=== PATIENT | male | born 1955 | race Caucasian/White ===

== ENCOUNTER 2020-07-25 13:54 | Inpatient (IN) ==
[2020-07-25] MEDS ORDERED: 0.9 % Sodium Chloride 2,000 ML ONE (14:09)
[2020-07-25] MEDS ORDERED: Piperacillin/Tazobactam 3.375 GM in Water for inj. (sterile) 20 ML IVP ONE (14:16)
[2020-07-25] MEDS ORDERED: 0.9 % Sodium Chloride 1,000 ML IVC ONE ×2 (14:16)
[2020-07-25 14:50] LABS: Hematocrit 23.4 % (37.5-50.1); Hemoglobin 7.3 g/dL (12.9-16.9); Mean Corpuscular HGB Conc 31.2 g/dL (31.6-35.5); Mean Corpuscular Hemoglobin 26.2 pg (28.0-33.3); Mean Corpuscular Volume 83.9 fL (83.0-100.0); Mean Platelet Volume 11.5 fL (9.4-12.4); Platelet Count 170 K/mcL (140-400); Red Blood Count 2.79 M/mcL (4.19-5.50); Red Cell Distribution Width 19.9 % (11.5-14.5); White Blood Count 10.6 K/mcL (4.3-11.1)
[2020-07-25 14:56] LABS: VBG HCO3 20 mEq/L (21-27); VBG PCO2 36 mmHg (41-51); VBG PH 7.34 pH Units (7.32-7.42); VBG PO2 83 mmHg (25-50)
[2020-07-25 15:03] LABS: INR 1.5; Prothrombin Time 16.8 Seconds (9.4-12.1)
[2020-07-25 15:08] LABS: Lymphocytes # 2.3 K/mcL (0.6-4.6); Monocytes # 0.2 K/mcL (0.0-1.3); Neutrophils # 8.1 K/mcL (1.6-8.9); Platelet Estimate Normal (Normal)
[2020-07-25 15:12] LABS: Acetaminophen < 10 mcg/mL (10-20); Alanine Aminotransferase 48 Units/L (7-52); Albumin 1.9 g/dL (3.5-5.7); Albumin/Globulin Ratio 0.6 (1.1-2.2); Alkaline Phosphatase 1223 Units/L (34-104); Aspartate Amino Transferase 206 Units/L (13-39); BUN/Creatinine Ratio 17 (6-26); Bilirubin,Direct 1.4 mg/dL (0.0-0.2); Bilirubin,Indirect 0.9 mg/dL (0.0-1.0); Bilirubin,Total 2.3 mg/dL (0.3-1.0); Blood Urea Nitrogen 26 mg/dL (8-23); Calcium 9.1 mg/dL (8.6-10.3); Carbon Dioxide 19 mEq/L (23-29); Chloride 103 mEq/L (98-107); Ethanol < 10 mg/dL (Less than 10); Glucose 93 mg/dL (70-105); Lipase 4 Units/L (11-82); Magnesium 1.9 mg/dL (1.6-2.6); Osmolality,Calculated 276 (280-300); Potassium 4.4 mEq/L (3.5-5.1); Salicylate < 2.5 mg/dL (15.0-30.0); Sodium 131 mEq/L (136-145); Total Protein 4.9 g/dL (6.4-8.9); eGFR For African Americans 54 (> 60); eGFR For Non-African Americans 45 (> 60)
[2020-07-25] MEDS ORDERED: Isovue-370 500 ML BOTTLE IVP ONE (15:33)
[2020-07-25] MEDS ORDERED: 0.9 % Sodium Chloride 500 ML ONE (15:47)
[2020-07-25] MEDS ORDERED: *HR* Norepinephrine 4 MG/4 ML VIAL IVC ONE (16:10)
[2020-07-25] MEDS ORDERED: 0.9 % Sodium Chloride 250 ML ONE (16:10)
[2020-07-25] MEDS: Norepinephrine 4 MG/254 ML IV.SOLN IVC SCH ×2 (16:17→22:25)
[2020-07-25 16:45] LABS: Amphetamine Screen,Urine Negative ng/mL (Cutoff=1000); Barbiturate Screen,Urine Negative ng/mL (Cutoff=200); Benzodiazepines Screen,Urine Negative ng/mL (Cutoff=200); Cannabinoid Screen,Urine Negative ng/mL (Cutoff = 50); Cocaine Screen,Urine Negative ng/mL (Cutoff= 300); Opiate Screen,Urine Positive ng/mL (Cutoff=300); Phencyclidine Screen,Urine Negative ng/mL (Cutoff=25)
[2020-07-25 16:45] LABS: Bacteria,Urine Few per hpf (None-Few); Bilirubin,Urine Negative (Negative); Blood,Urine Small (Negative); Clarity,Urine Turbid (Clear); Color,Urine Yellow (Yellow); Glucose,Urine (UA) Normal (Normal); Granular Casts,Urine Many per lpf (None Seen); Hyaline Casts,Urine Few per lpf (None Seen); Ketones,Urine Negative (Negative); Leukocyte Esterase,Urine Negative (Negative); Mucus,Urine Few per lpf (None-Few); Nitrite,Urine Negative (Negative); PH,Urine 5.5 pH Units (5.0-8.0); Protein,Urine 30 mg/dL (Neg-Trace); Renal Epithelial Cells,Urine Few per hpf (None-Few); Transitional Epi Cells,Urine Few per hpf (None-Few); Urobilinogen,Urine Normal (Normal); WBC,Urine 15-30 per hpf (0-3)
[2020-07-25 16:56] LABS: Adenovirus Not Detected (Not Detect); Bordetella Pertussis Not Detected (Not Detect); Chlamydophila pneumoniae Not Detected (Not Detect); Coronavirus 229E Not Detected (Not Detect); Coronavirus HKU1 Not Detected (Not Detect); Coronavirus NL63 Not Detected (Not Detect); Coronavirus OC43 Not Detected (Not Detect); Human Metapneumovirus Not Detected (Not Detect); Human Rhinovirus/Enterovirus Not Detected (Not Detect); Influenza A Subtype 2009 H1 Not Detected (Not Detect); Influenza B Not Detected (Not Detect); Mycoplasma pneumoniae Not Detected (Not Detect); Parainfluenza Virus 1 Not Detected (Not Detect); Parainfluenza Virus 2 Not Detected (Not Detect); Parainfluenza Virus 3 Not Detected (Not Detect); Parainfluenza Virus 4 Not Detected (Not Detect); Respiratory Syncytial Virus Not Detected (Not Detect); SARS-CoV-2 Not Detected (Not Detect)
[2020-07-25 17:23] LABS: Thyroid Stimulating Hormone 5.782 mcIU/mL (0.340-5.600)
[2020-07-25] MEDS ORDERED: Naloxone 0.4 MG/ML INJ IVP PRN (20:08)
[2020-07-25] MEDS ORDERED: *HR* Dextrose 50 % in Water (Vial) 50 ML VIAL IVP PRN (20:15)
[2020-07-25] MEDS ORDERED: D5% in Water 1,000 ML IVC PRN (20:15)
[2020-07-25] MEDS ORDERED: Dextrose Gel 15 GM/37.5 ML TUBE PO PRN ×2 (20:15)
[2020-07-25] MEDS ORDERED: Albuterol 2.5 MG/3 ML NEBULIZER IH PRN (20:15)
[2020-07-25] MEDS ORDERED: Vancomycin (wt based) 1,000 MG VIAL IVPB SCH (21:00)
[2020-07-25] MEDS: Ipratropium/Albuterol Neb 3 ML IH SCH (22:10)
[2020-07-25 22:33] LABS: Estimated Average Glucose 114 mg/dl; Hemoglobin A1C 5.6 %
[2020-07-26] MEDS: Piperacillin/Tazobactam 3.375 GM in 0.9 % Sodium Chloride Mini Bag 100 ML IVPB SCH ×4 (00:21→23:09)
[2020-07-26] MEDS: Insulin LISPRO 300 UNITS/3 ML VIAL SUBQ SCH ×5 (00:21→23:41)
[2020-07-26] MEDS: Norepinephrine 4 MG/254 ML IV.SOLN IVC SCH ×5 (03:36→22:56)
[2020-07-26 03:37] LABS: Basophils % 0.4 %; Eosinophils # 0.1 K/mcL (0.0-0.6); Eosinophils % 0.5 %; Hematocrit 28.7 % (37.5-50.1); Immature Granulocytes % 0.4 % (0-4); Lymphocytes # 1.2 K/mcL (0.6-4.6); Lymphocytes % 11.9 %; Mean Corpuscular Hemoglobin 26.2 pg (28.0-33.3); Mean Corpuscular Volume 84.4 fL (83.0-100.0); Mean Platelet Volume 11.4 fL (9.4-12.4); Monocytes # 0.7 K/mcL (0.0-1.3); Monocytes % 6.7 %; Platelet Count 194 K/mcL (140-400); Segmented Neutrophils % 80.1 %; White Blood Count 10.4 K/mcL (4.3-11.1)
[2020-07-26 03:38] LABS: Immature Reticulocyte % 21.9 % (11.0-38.0); Retculocyte # 0.06 M/mcL (0.05-0.10); Reticulocyte % 1.7 % (1.6-2.8)
[2020-07-26] MEDS: Ipratropium/Albuterol Neb 3 ML IH SCH ×4 (03:39→22:28)
[2020-07-26 03:40] LABS: Hemoglobin 8.9 g/dL (12.9-16.9); Neutrophils # 8.3 K/mcL (1.6-8.9)
[2020-07-26 03:44] LABS: INR 1.6; Prothrombin Time 17.7 Seconds (9.4-12.1)
[2020-07-26 03:52] LABS: Anisocytosis 1+ (Not Present); Platelet Estimate Normal (Normal)
[2020-07-26 03:57] LABS: Albumin 1.8 g/dL (3.5-5.7); Albumin/Globulin Ratio 0.6 (1.1-2.2); Bilirubin,Direct 1.5 mg/dL (0.0-0.2); Bilirubin,Indirect 0.9 mg/dL (0.0-1.0); Bilirubin,Total 2.4 mg/dL (0.3-1.0); Calcium 7.3 mg/dL (8.6-10.3); Magnesium 1.8 mg/dL (1.6-2.6); Phosphorous 4.4 mg/dL (2.7-4.5); Potassium 4.3 mEq/L (3.5-5.1); Total Protein 4.8 g/dL (6.4-8.9)
[2020-07-26 03:58] LABS: % Iron Saturation 24 % (20-55); Iron 41 mcg/dL (65-175); Transferrin 123 mg/dL (203-362)
[2020-07-26 04:16] LABS: Ferritin 164 ng/mL (20-250)
[2020-07-26] MEDS: DAPTOmycin 500 MG in 0.9 % Sodium Chloride 100 ML IVPB SCH (07:38)
[2020-07-26] MEDS: Pantoprazole 40 MG VIAL IVP SCH (08:54)
[2020-07-26] MEDS: Fluconazole 400 MG/200 ML 400 MG/200 ML BAG IVPB SCH (08:54)
[2020-07-26] MEDS: *HR* Heparin 5,000 UNIT/ML VIAL SQ SCH ×2 (09:48→18:20)
[2020-07-26] MEDS: Vancomycin Oral Soln 125 MG/2.5 ML UDC PO SCH ×4 (09:48→20:35)
[2020-07-26] MEDS ORDERED: Lactulose Oral Soln 20 GM/30 ML UDC PO ONE (14:52)
[2020-07-26] MEDS ORDERED: MetroNIDAZOLE 500 MG/100 ML 500 MG/100 ML BAG IVPB SCH (16:00)
[2020-07-26] MEDS ORDERED: Acetaminophen 325 MG TABLET PO PRN (16:23)
[2020-07-26 23:42] LABS: Adenovirus F 40/41 PCR Not detected (Not detect); Astrovirus PCR Not detected (Not detect); C.difficile Toxin A/B Gene PCR Not detected (Not detect); Campylobacter by PCR Not detected (Not detect); Cryptosporidium by PCR Not detected (Not detect); Cyclospora cayetanensis PCR Not detected (Not detect); E. coli O157 by PCR Not detected (Not detect); Entamoeba histolytica PCR Not detected (Not detect); Enteroaggregative E.coli(EAEC) Not detected (Not detect); Enteropathogenic E.coli(EPEC) Not detected (Not detect); Enterotoxigenic E.coli (ETEC) Not detected (Not detect); Giardia lamblia PCR Not detected (Not detect); Norovirus GI/GII PCR Not detected (Not detect); Plesiomonas shigelloides PCR Not detected (Not detect); Rotavirus A PCR Not detected (Not detect); Salmonella PCR Not detected (Not detect); Sapovirus PCR Not detected (Not detect); Shig/EnteroinvasiveE coli EIEC Not detected (Not detect); Shigalike tox-prod E coli STEC Not detected (Not detect); Vibrio PCR Not detected (Not detect); Vibrio cholerae PCR Not detected (Not detect); Yersinia enterocolitica PCR Not detected (Not detect)
[2020-07-27 03:55] LABS: Basophils # 0.1 K/mcL (0.0-0.2); Basophils % 0.6 %; Eosinophils # 0.1 K/mcL (0.0-0.6); Eosinophils % 1.4 %; Hematocrit 29.9 % (37.5-50.1); Hemoglobin 9.2 g/dL (12.9-16.9); Immature Granulocytes % 0.6 % (0-4); Lymphocytes # 1.1 K/mcL (0.6-4.6); Lymphocytes % 13.2 %; Mean Corpuscular HGB Conc 30.8 g/dL (31.6-35.5); Mean Corpuscular Hemoglobin 26.2 pg (28.0-33.3); Mean Corpuscular Volume 85.2 fL (83.0-100.0); Mean Platelet Volume 12.3 fL (9.4-12.4); Monocytes # 0.5 K/mcL (0.0-1.3); Monocytes % 5.9 %; Platelet Count 203 K/mcL (140-400); Red Blood Count 3.51 M/mcL (4.19-5.50); Red Cell Distribution Width 19.5 % (11.5-14.5); Segmented Neutrophils % 78.3 %; White Blood Count 8.1 K/mcL (4.3-11.1)
[2020-07-27 03:58] LABS: Neutrophils # 6.3 K/mcL (1.6-8.9)
[2020-07-27] MEDS: Norepinephrine 4 MG/254 ML IV.SOLN IVC SCH ×3 (04:02→17:55)
[2020-07-27 04:04] LABS: INR 1.5; Prothrombin Time 16.7 Seconds (9.4-12.1)
[2020-07-27 04:06] LABS: VBG Ionized Calcium 1.02 mmol/L (1.15-1.35)
[2020-07-27 04:13] LABS: Albumin 1.8 g/dL (3.5-5.7); Albumin/Globulin Ratio 0.6 (1.1-2.2); Bilirubin,Direct 1.1 mg/dL (0.0-0.2); Bilirubin,Indirect 0.8 mg/dL (0.0-1.0); Bilirubin,Total 1.9 mg/dL (0.3-1.0); Calcium 7.1 mg/dL (8.6-10.3); Magnesium 1.8 mg/dL (1.6-2.6); Potassium 4.1 mEq/L (3.5-5.1); Total Protein 4.8 g/dL (6.4-8.9)
[2020-07-27 04:15] LABS: Anisocytosis 1+ (Not Present); Platelet Estimate Normal (Normal); Reactive Lymphocytes Present (Not Present); Smudge Cells Present (Not Present); Toxic Granulation Present (Not Present)
[2020-07-27] MEDS: Ipratropium/Albuterol Neb 3 ML IH SCH ×4 (04:23→22:08)
[2020-07-27] MEDS: *HR* Heparin 5,000 UNIT/ML VIAL SQ SCH ×2 (05:06→17:16)
[2020-07-27] MEDS: Insulin LISPRO 300 UNITS/3 ML VIAL SUBQ SCH ×3 (06:28→18:10)
[2020-07-27] MEDS ORDERED: Albumin Human 5% 12.5 GM/250 ML IV.SOLN IVPB ONE (07:39)
[2020-07-27] MEDS ORDERED: Lactulose Oral Soln 20 GM/30 ML UDC PO SCH (09:00)
[2020-07-27] MEDS: Piperacillin/Tazobactam 3.375 GM in 0.9 % Sodium Chloride Mini Bag 100 ML IVPB SCH ×2 (09:09→15:51)
[2020-07-27] MEDS: Fluconazole 400 MG/200 ML 400 MG/200 ML BAG IVPB SCH (09:11)
[2020-07-27] MEDS: DAPTOmycin 500 MG in 0.9 % Sodium Chloride 100 ML IVPB SCH (09:13)
[2020-07-27] MEDS: Pantoprazole 40 MG VIAL IVP SCH (09:16)
[2020-07-27] MEDS ORDERED: Aquaphor/Maalox 50 GM BOTTLE TP PRN (10:16)
[2020-07-27] MEDS ORDERED: *HR* OxyCODONE Immed Rel 5 MG TABLET PO PRN (10:22)
[2020-07-27] MEDS ORDERED: *HR* Dextrose 50 % in Water (Vial) 50 ML VIAL IVP ONE (13:22)
[2020-07-27] MEDS: Gabapentin 300 MG CAPSULE PO SCH (20:32)
[2020-07-27] MEDS: Lactulose Oral Soln 20 GM/30 ML UDC PO SCH (20:32)
[2020-07-28] MEDS: Insulin LISPRO 300 UNITS/3 ML VIAL SUBQ SCH ×3 (00:23→11:43)
[2020-07-28] MEDS: Piperacillin/Tazobactam 3.375 GM in 0.9 % Sodium Chloride Mini Bag 100 ML IVPB SCH ×3 (00:25→16:37)
[2020-07-28] MEDS: Ipratropium/Albuterol Neb 3 ML IH SCH ×4 (04:29→23:00)
[2020-07-28 05:19] LABS: Hematocrit 27.4 % (37.5-50.1); Hemoglobin 8.4 g/dL (12.9-16.9); Mean Corpuscular HGB Conc 30.7 g/dL (31.6-35.5); Mean Corpuscular Hemoglobin 26.3 pg (28.0-33.3); Mean Corpuscular Volume 85.9 fL (83.0-100.0); Mean Platelet Volume 11.2 fL (9.4-12.4); Platelet Count 157 K/mcL (140-400); Red Blood Count 3.19 M/mcL (4.19-5.50); Red Cell Distribution Width 19.9 % (11.5-14.5); White Blood Count 6.9 K/mcL (4.3-11.1)
[2020-07-28 05:34] LABS: Albumin 1.7 g/dL (3.5-5.7); Albumin/Globulin Ratio 0.6 (1.1-2.2); Bilirubin,Direct 1.1 mg/dL (0.0-0.2); Bilirubin,Indirect 0.6 mg/dL (0.0-1.0); Bilirubin,Total 1.7 mg/dL (0.3-1.0); Calcium 6.9 mg/dL (8.6-10.3); Globulin 2.9 g/dL (2.4-3.5); Magnesium 1.8 mg/dL (1.6-2.6); Potassium 3.7 mEq/L (3.5-5.1); Total Protein 4.6 g/dL (6.4-8.9)
[2020-07-28 05:50] LABS: Anisocytosis 1+ (Not Present); Large Platelets Present (Not Present); Reactive Lymphocytes Present (Not Present)
[2020-07-28 05:51] LABS: Platelet Estimate Normal (Normal); Poikilocytosis 1+ (Not Present)
[2020-07-28] MEDS: *HR* Heparin 5,000 UNIT/ML VIAL SQ SCH ×2 (05:54→16:37)
[2020-07-28 06:22] LABS: Basophils # 0.1 K/mcL (0.0-0.2); Eosinophils # 0.1 K/mcL (0.0-0.6); Monocytes # 0.6 K/mcL (0.0-1.3); Neutrophils # 5.1 K/mcL (1.6-8.9)
[2020-07-28] MEDS: DAPTOmycin 500 MG in 0.9 % Sodium Chloride 100 ML IVPB SCH (07:55)
[2020-07-28] MEDS: Fluconazole 400 MG/200 ML 400 MG/200 ML BAG IVPB SCH (08:00)
[2020-07-28] MEDS: Pantoprazole 40 MG VIAL IVP SCH (08:01)
[2020-07-28] MEDS: Lactulose Oral Soln 20 GM/30 ML UDC PO SCH ×2 (08:04→19:41)
[2020-07-28] MEDS: Gabapentin 300 MG CAPSULE PO SCH ×2 (08:04→19:41)
[2020-07-28] MEDS ORDERED: Aspirin Enteric Coated 81 MG Tablet PO SCH (09:00)
[2020-07-28] MEDS ORDERED: *HR* Dextrose 50 % in Water (Vial) 50 ML VIAL IVP ONE (11:36)
[2020-07-28] MEDS ORDERED: Albumin Human 5% 12.5 GM/250 ML IV.SOLN IVC SCH (14:15)
[2020-07-28] MEDS ORDERED: Albuterol 2.5 MG/3 ML NEBULIZER IH PRN (14:48)
[2020-07-28] MEDS ORDERED: Acetaminophen 325 MG TABLET PO PRN (14:48)
[2020-07-28] MEDS ORDERED: Aquaphor/Maalox 50 GM BOTTLE TP PRN (14:48)
[2020-07-28] MEDS ORDERED: Dextrose Gel 15 GM/37.5 ML TUBE PO PRN ×2 (14:48)
[2020-07-28] MEDS ORDERED: Naloxone 0.4 MG/ML INJ IVP PRN (14:48)
[2020-07-28] MEDS ORDERED: *HR* Dextrose 50 % in Water (Vial) 50 ML VIAL IVP PRN (14:48)
[2020-07-28] MEDS ORDERED: D5% in Water 1,000 ML IVC PRN (14:48)
[2020-07-28] MEDS: *HR* OxyCODONE Immed Rel 5 MG TABLET PO PRN (16:37)
[2020-07-28] MEDS: Albumin Human 5% 12.5 GM/250 ML IV.SOLN IVC SCH ×2 (16:38→20:21)
[2020-07-29] MEDS: Piperacillin/Tazobactam 3.375 GM in 0.9 % Sodium Chloride Mini Bag 100 ML IVPB SCH ×4 (01:02→23:23)
[2020-07-29] MEDS: Ipratropium/Albuterol Neb 3 ML IH SCH ×4 (04:04→22:28)
[2020-07-29 04:46] LABS: VBG Ionized Calcium 1.02 mmol/L (1.15-1.35)
[2020-07-29 04:51] LABS: Basophils % 0.7 %; Eosinophils # 0.1 K/mcL (0.0-0.6); Eosinophils % 1.6 %; Hematocrit 26.7 % (37.5-50.1); Hemoglobin 8.3 g/dL (12.9-16.9); Immature Granulocytes % 0.5 % (0-4); Lymphocytes % 18.1 %; Mean Corpuscular HGB Conc 31.1 g/dL (31.6-35.5); Mean Corpuscular Hemoglobin 26.3 pg (28.0-33.3); Mean Corpuscular Volume 84.8 fL (83.0-100.0); Mean Platelet Volume 11.7 fL (9.4-12.4); Monocytes # 0.5 K/mcL (0.0-1.3); Monocytes % 8.5 %; Neutrophils # 3.9 K/mcL (1.6-8.9); Platelet Count 130 K/mcL (140-400); Red Blood Count 3.15 M/mcL (4.19-5.50); Red Cell Distribution Width 19.9 % (11.5-14.5); Segmented Neutrophils % 70.6 %; White Blood Count 5.5 K/mcL (4.3-11.1)
[2020-07-29 05:05] LABS: INR 1.5; Prothrombin Time 17.6 Seconds (9.4-12.1)
[2020-07-29 05:07] LABS: Albumin 1.9 g/dL (3.5-5.7); Albumin/Globulin Ratio 0.8 (1.1-2.2); Bilirubin,Direct 1.5 mg/dL (0.0-0.2); Bilirubin,Indirect 0.8 mg/dL (0.0-1.0); Bilirubin,Total 2.3 mg/dL (0.3-1.0); Globulin 2.5 g/dL (2.4-3.5); Magnesium 1.8 mg/dL (1.6-2.6); Phosphorous 3.6 mg/dL (2.7-4.5); Potassium 3.5 mEq/L (3.5-5.1); Total Protein 4.4 g/dL (6.4-8.9)
[2020-07-29 05:08] LABS: Activated Partial Thrombo Time 41.9 Seconds (26.0-36.0)
[2020-07-29] MEDS: *HR* Heparin 5,000 UNIT/ML VIAL SQ SCH ×2 (05:19→17:35)
[2020-07-29] MEDS: Gabapentin 300 MG CAPSULE PO SCH ×2 (08:54→20:55)
[2020-07-29] MEDS: Aspirin Enteric Coated 81 MG Tablet PO SCH (08:54)
[2020-07-29] MEDS: Lactulose Oral Soln 20 GM/30 ML UDC PO SCH ×3 (08:54→20:55)
[2020-07-29] MEDS: Pantoprazole 40 MG VIAL IVP SCH (08:55)
[2020-07-29] MEDS: DAPTOmycin 500 MG in 0.9 % Sodium Chloride 100 ML IVPB SCH (08:56)
[2020-07-29] MEDS ORDERED: Fluconazole 400 MG/200 ML 400 MG/200 ML BAG IVPB SCH (09:00)
[2020-07-29] MEDS: *HR* OxyCODONE Immed Rel 5 MG TABLET PO PRN ×2 (09:10→17:49)
[2020-07-29 09:52] LABS: Uric Acid 5.9 mg/dL (2.3-7.6)
[2020-07-29 10:26] LABS: Hepatitis B Surface Antigen Nonreactive (Nonreactive)
[2020-07-29 10:55] LABS: Hepatitis B Core IgM Nonreactive (Nonreactive); Hepatitis C Virus Antibody Nonreactive (Nonreactive)
[2020-07-29 10:57] LABS: Hepatitis A Antibody IgM Nonreactive (Nonreactive)
[2020-07-29] MEDS: Albumin 25% 25gram/100mL 25 GM/100 ML IV.SOLN IVPB SCH ×2 (13:45→16:03)
[2020-07-29] MEDS: Octreotide 400 MCG in 0.9 % Sodium Chloride 100 ML IVC SCH ×2 (13:51→21:32)
[2020-07-29] MEDS ORDERED: Furosemide 20 MG/2 ML VIAL IVP ONE (17:48)
[2020-07-29 18:13] LABS: Protein/Creatinine Ratio,Urine 2.01 mg/mg (0.00-0.20); Sodium, Urine 27.8 mEq/L
[2020-07-30] MEDS: Ipratropium/Albuterol Neb 3 ML IH SCH ×3 (03:49→15:50)
[2020-07-30 04:15] LABS: Eosinophils # 0.1 K/mcL (0.0-0.6); Hematocrit 28.5 % (37.5-50.1); Hemoglobin 8.8 g/dL (12.9-16.9); Mean Corpuscular HGB Conc 30.9 g/dL (31.6-35.5); Mean Corpuscular Hemoglobin 26.3 pg (28.0-33.3); Mean Corpuscular Volume 85.3 fL (83.0-100.0); Mean Platelet Volume 11.4 fL (9.4-12.4); Platelet Count 129 K/mcL (140-400); Red Blood Count 3.34 M/mcL (4.19-5.50); Red Cell Distribution Width 20.4 % (11.5-14.5); White Blood Count 6.2 K/mcL (4.3-11.1)
[2020-07-30 04:36] LABS: Albumin 2.2 g/dL (3.5-5.7); Albumin/Globulin Ratio 0.9 (1.1-2.2); Bilirubin,Total 2.4 mg/dL (0.3-1.0); Calcium 7.2 mg/dL (8.6-10.3); Globulin 2.5 g/dL (2.4-3.5); Potassium 3.7 mEq/L (3.5-5.1); Total Protein 4.7 g/dL (6.4-8.9)
[2020-07-30 05:17] LABS: Anisocytosis 2+ (Not Present); Lymphocytes # 1.1 K/mcL (0.6-4.6); Monocytes # 0.4 K/mcL (0.0-1.3); Neutrophils # 4.7 K/mcL (1.6-8.9); Platelet Estimate Slight Decrease (Normal)
[2020-07-30] MEDS: *HR* OxyCODONE Immed Rel 5 MG TABLET PO PRN (06:13)
[2020-07-30] MEDS: *HR* Heparin 5,000 UNIT/ML VIAL SQ SCH ×2 (06:14→16:19)
[2020-07-30] MEDS: DAPTOmycin 500 MG in 0.9 % Sodium Chloride 100 ML IVPB SCH (06:17)
[2020-07-30] MEDS: Octreotide 400 MCG in 0.9 % Sodium Chloride 100 ML IVC SCH ×2 (06:50→15:10)
[2020-07-30] MEDS: Piperacillin/Tazobactam 3.375 GM in 0.9 % Sodium Chloride Mini Bag 100 ML IVPB SCH ×2 (07:59→16:18)
[2020-07-30] MEDS: Lactulose Oral Soln 20 GM/30 ML UDC PO SCH ×3 (08:03→20:00)
[2020-07-30] MEDS: Gabapentin 300 MG CAPSULE PO SCH ×2 (08:04→20:00)
[2020-07-30] MEDS: Pantoprazole 40 MG VIAL IVP SCH (08:04)
[2020-07-30] MEDS: Aspirin Enteric Coated 81 MG Tablet PO SCH (08:26)
[2020-07-30] MEDS ORDERED: Fluconazole 200 MG/100 ML 200 MG/100 ML BAG IVPB SCH (09:00)
[2020-07-30] MEDS ORDERED: Fluconazole 100 MG TABLET PO SCH (09:00)
[2020-07-30] MEDS ORDERED: Albumin 25% 25gram/100mL 25 GM/100 ML IV.SOLN IVPB SCH (11:00)
[2020-07-30] MEDS: Furosemide 20 MG/2 ML VIAL IVP SCH ×2 (13:19→19:59)
[2020-07-30 19:58] VITALS: BP 148/75
[2020-08-01] MEDS ORDERED: DAPTOmycin 500 MG in 0.9 % Sodium Chloride 100 ML IVPB SCH (07:00)
== END 2020-07-30 21:20 | disposition short-term general hospital (02) | DRG 871 ==
LOC: EMEROOARM 13:54 → ICNU 19:28 → SUATTDRO 19:28 → ICNU 20:08 → 2ANU 07-28 16:17
PROVIDERS: ADMIT Student in an Organized Health Care Education/Training Program; ATTEND General Practice